=== PATIENT | female | born 1975 | race Caucasian/White ===

== ENCOUNTER 2022-05-27 09:37 | Emergency (ER) | payer BC, SELFPAY ==
[2022-05-27] VITALS (14 sets, daily range): BP systolic 109–129; BP diastolic 70–87; PULSE 84–114; RESP 16; TEMP 37.1–37.2; O2SAT 96–98; BMI 42.0
--- NOTE | 2022-05-27 10:19 | ED.SOB ---
HPI - SOB/Dyspnea General Time Seen by Provider: 10:19 Date Seen: 05/27/22 Chief Complaint: Shortness of Breath/Dyspnea Stated Complaint: Covid+, shortness of breath Time Seen by Provider: 05/27/22 10:18 Source: patient and RN notes reviewed Mode of arrival: ambulatory Limitations: no limitations History of Present Illness HPI Narrative: Patient is a very pleasant 46-year-old female with a history of reactive airway who comes to the emergency room for evaluation regarding COVID. Patient notes that approximately 36 hours ago she noticed a scratchy throat and yesterday had some itchiness in her chest and it continued sore throat. She notes that she took a COVID test and that was negative and she use some of her albuterol which seemed to help her breathe. However, overnight she states she could not sleep and she was occasionally short of breath. She notes that when she walks she also gets out of breath. This morning she took 2 go COVID tests and they were both positive. She is worried because she states that she is overweight and does have a past history of smoking although she quit in 2009. She notes that she does not have any chest pain and she does not have pain when she walks. She is normally a healthy person but has just discontinued Medrol for back pain. She had an annular tear and had been essentially pain-free but now she does have some spasm in her back that has return. No loss of bowel or bladder control and she is able to ambulate. Patient states that she is very worried about COVID as she has not had in the past. She is not only vaccinated but has had all the boosters. She denies vomiting or diarrhea. Patient denies a history of DVT, calf pain or swelling. Related Data Previous Rx's Medication Instructions Recorded nirmatrelvir 300 mg (150 mg See Rx Instructions PO .COMPLEX 05/27/22 x2)-ritonavir 100 mg tablet,dose #30 ea pack(EUA) (Paxlovid) Allergies Allergy/AdvReac Type Severity Reaction Status Date / Time azithromycin [From Zithromax] Allergy Verified 05/27/22 09:49 cefaclor [From Ceclor] Allergy Verified 05/27/22 09:49 Penicillins Allergy Verified 05/27/22 09:48 Review of Systems Status of ROS: Reports: 10 or more systems reviewed and unremarkable except as noted in History and below Const: Reports: fatigue; Denies: fever Eyes: Denies: blurry vision ENMT: Reports: throat pain; Denies: neck pain, difficulty swallowing or hoarseness Cardio: Reports: shortness of breath with exertion; Denies: chest pain or swelling of feet/ankles Resp: Reports: shortness of breath, cough and wheezing GI: Denies: abdominal pain, nausea, vomiting, diarrhea or difficulty swallowing : Denies: painful urination or urinary frequency Musculo: Denies: neck pain Integ/Breast: Denies: rash or itching Endo: Reports: fatigue Allergy/Immuno: Reports: wheezing PFSH PFSH Social History Smoking Status: Former smoker Do you use any of these nicotine containing products: None Second hand tobacco smoke exposure: No How often do you have a drink containing alcohol: monthly or less How many standard drinks containing alcohol do you have on a typical day: 1 or 2 How often do you have six or more drinks on one occasion: Never AUDIT-C Alcohol total score: 1 Non-prescribed substance use: denies use service: No Exam Narrative: Exam Narrative: Patient is a very pleasant female in no acute distress. EOM is full pupils equal round reactive. Oral cavity with moist mucous membranes. I do not note any exudate in posterior oropharynx. Perhaps there is some mild increased erythema noted. Neck is supple with no lymphadenopathy. Heart with regular rate and rhythm. Lungs are clear in all lung mandujano. Perhaps slightly decreased sounds in the bases left greater than right. No CVA tenderness with percussion. Abdomen soft nontender. Lower extremities without edema calf tenderness and negative Homans sign. Const: Vital Signs, click to edit/add: Vital Signs - 24 hr 05/27/22 09:49 05/27/22 09:46 05/27/22 09:49 Temperature 98.7 F Pulse Rate 108 H 114 H Pulse Rate [Pulse Oximeter] 102 H Respiratory Rate Blood Pressure 129/87 Blood Pressure [Ri ght Upper Arm] 129/87 Pulse Oximetry 97 96 97 Oxygen Delivery Me thod Room Air 05/27/22 10:02 05/27/22 10:15 05/27/22 10:22 Temperature Pulse Rate 90 99 95 Pulse Rate [Pulse Oximeter] Respiratory Rate Blood Pressure 118/78 Blood Pressure [Ri ght Upper Arm] Pulse Oximetry 98 98 97 Oxygen Delivery Me thod 05/27/22 10:23 05/27/22 10:30 05/27/22 10:32 Temperature Pulse Rate 92 88 96 Pulse Rate [Pulse Oximeter] Respiratory Rate Blood Pressure 122/71 Blood Pressure [Ri ght Upper Arm] Pulse Oximetry 98 98 98 Oxygen Delivery Me thod 05/27/22 10:45 05/27/22 11:00 05/27/22 11:03 Temperature Pulse Rate 91 84 88 Pulse Rate [Pulse Oximeter] Respiratory Rate Blood Pressure 115/77 Blood Pressure [Ri ght Upper Arm] Pulse Oximetry 97 97 97 Oxygen Delivery Me thod 05/27/22 11:15 05/27/22 11:30 05/27/22 11:32 Temperature 98.9 F Pulse Rate 90 91 88 Pulse Rate [Pulse Oximeter] Respiratory Rate 16 Blood Pressure 109/70 Blood Pressure [Ri ght Upper Arm] Pulse Oximetry 98 97 98 Oxygen Delivery Me thod Documenting provider has reviewed patient's vital signs: yes Course Vital Signs Vital signs: Initial Vital Signs Pulse Rate 108 H 05/27/22 09:46 Pulse Oximetry 96 05/27/22 09:46 Vital Signs Pulse Rate 108 H 05/27/22 09:46 Pulse Oximetry 96 05/27/22 09:46 Temperature 98.9 F 05/27/22 11:32 Pulse Rate 88 05/27/22 11:32 Respiratory Rate 16 05/27/22 11:32 Blood Pressure 109/70 05/27/22 11:32 Pulse Oximetry 98 05/27/22 11:32 Oxygen Delivery Method 05/27/22 09:49 MDM - SOB/Dyspnea MDM Narrative Medical decision making narrative: 1. COVID-patient has risk factors for disease progression including obesity as well as reactive airway. She is vaccinated. Normal creatinine. Will start patient on COVID medication Paxlovid. Did speak of risks including allergic reaction, kidney impact, poor taste in mouth as well as benefits. I do think benefits outweigh the risks in this particular situation. We also spoke about breathing exercises including 2 deep breaths, 2 coughs and 2 deep breaths at the top of every hour while awake. Finally we also recommend sleeping on stomach or side. 2. Disposition-home. Rest at this time. Check with human resources department at work to find out when she is able to return. Of course, for worsening symptoms would have them return to the emergency room. At this time no evidence of underlying heart issues with normal EKG, troponin was negative, vital signs are reassuring. Recommend rest, push fluids, ibuprofen or Tylenol as needed for pain. Medical Records Attestation: I reviewed the patient's medical records. Lab Data Attestation: I reviewed the patient's lab results. Labs: Lab Results 05/27/22 Range/Units 10:00 Creatinine 0.6 (0.5-1.5) mg/dL Estimated Creat Clear 110.84 Estimated GFR 113 ml/min Imaging Data Chest x-ray: Attestation: I have reviewed the pertinent imaging results. My impression: No evidence of infiltrates or widened mediastinum. Radiologist's impression: EART AND MEDIASTINUM: The heart size is normal. The mediastinal contour appears normal for patient age. LUNGS AND PLEURAL SPACES: The lungs appear normal.The pleural spaces are unremarkable. OSSEOUS STRUCTURES: Age-appropriate appearance. No acute focal finding. IMPRESSION: Normal single-view portable chest radiograph. ECG Data Attestation: I personally reviewed and interpreted this ECG as follows: ECG interpretation date: 05/27/22 Interpretation: EKG by my read shows sinus rhythm at a rate of 91. I do not note any acute ST or T-wave changes. QT normal at 435 Discharge Plan Discharge Clinical Impression: COVID Patient Disposition: Home, Self-Care Condition: Unchanged Additional Instructions: Start Paxlovid. Alternate ibuprofen and Tylenol as needed for discomfort Breathing exercises included. Try to sleep on your stomach or on your side. Recommend at the top of every hour while you are awake 2 deep breaths, 2 hard coughs, 2 deep breaths to keep all the airways open. Move your legs often to prevent blood clots. Seek medical attention for worsening symptoms. Prescriptions: New Paxlovid (EUA) 300 mg (150 mg x 2)-100 mg tablets,dose pack See Rx Instructions .ROUTE .COMPLEX Qty: 30 0RF Rx Instructions: take TWO 150 mg tablets of nirmatrelvir with ONE 100 mg tablet of ritonavir twice daily for 5 days Follow Up/Referrals: Provider,Not a Local [Primary Care Provider] - Stand Alone Forms: [facility] Inst[facility]
--- NOTE | 2022-05-27 10:20 | CRLHL7_ITS ---
For Patients: As a result of the Cures Act, medical imaging exams and procedure reports are released immediately into your electronic medical record. You may view this report before your referring provider. If you have questions, please contact your health care provider. INDICATION: COVID with dyspnea COMPARISON: None TECHNIQUE: Portable single view examination FINDINGS: TUBES AND LINES: None. HEART AND MEDIASTINUM: The heart size is normal. The mediastinal contour appears normal for patient age. LUNGS AND PLEURAL SPACES: The lungs appear normal.The pleural spaces are unremarkable. OSSEOUS STRUCTURES: Age-appropriate appearance. No acute focal finding. IMPRESSION: Normal single-view portable chest radiograph. Dictated by Roderick Freeman MD @ 05/27/2022 10:37:53 AM (Electronically Signed)
[2022-05-27 10:32] LABS: Creatinine* 0.6 mg/dL (0.5-1.5); Est. Creatinine Clearance* 110.84; Estimated Glomerular Filt Rate 113 ml/min
== END 2022-05-27 11:40 | disposition home or self-care (01) ==
PROVIDERS: Emergency Provider Family Medicine
DX: U07.1 COVID-19 (principal); E66.9 Obesity, unspecified; J45.909 Unspecified asthma, uncomplicated
CPT/HCPCS: 36415; 71045; 82565; 99283; 99284

== ENCOUNTER 2022-11-10 21:42 | Emergency (ER) | payer BC, SELFPAY ==
[2022-11-10] VITALS (7 sets, daily range): BP systolic 135–165; BP diastolic 78–95; PULSE 54–89; RESP 16–18; TEMP 36.8–37.1; O2SAT 95–99; BMI 42.0
--- NOTE | 2022-11-10 22:02 | CRLHL7_ITS ---
For Patients: As a result of the Century Cures Act, medical imaging exams and procedure reports are released immediately into your electronic medical record. You may view this report before your referring provider. If you have questions, please contact your health care provider. INDICATION: Chest pain, shortness of breath TECHNIQUE: Chest radiograph 3 views COMPARISON: 05/27/2022, 03/11/2016 FINDINGS: Mediastinum: The mediastinum is normal in appearance but partly obscured by a Zio monitor. The heart silhouette is normal in size and morphology. Lung: Both lungs are unremarkable in appearance. No sign of pleural effusion seen. No pneumothorax is identified. Bone and Soft tissue: Unremarkable for age. IMPRESSION: 1. No acute cardiopulmonary disease is seen. Dictated by: Ovidio Spain MD @ 11/10/2022 22:43:13 (Electronically Signed)
--- NOTE | 2022-11-10 22:03 | ED_ITS ---
HPI - General Adult General Time Seen by Provider: 22:03 Date Seen: 11/10/22 Chief complaint: Abdominal Pain Stated complaint: upper gastric pain Time Seen by Provider: 11/10/22 21:51 Source: patient Mode of arrival: ambulatory Limitations: no limitations History of Present Illness HPI narrative: Patient is a 47-year-old female with no pertinent medical problems presenting to emergency department for chest pain and shortness of breath. She says yesterday she started having chest pressure and felt like someone was sitting on her chest. She went to the clinic in was evaluated and discharged home with a Holter monitor. She says today the chest pressure is gone away but now she has more of a sharp pain in her midsternal region that radiates to her right shoul good right ribs. Denies ever having symptoms like this before. Does states she has been having a dry cough that started shortly after the chest pressure yesterday. Denies fevers, chills, headache, vomiting, diarrhea, constipation, nausea, vomiting, weakness, numbness. Related Data Home Medications Medication Instructions Recorded Confirmed clobetasol 0.05 % scalp solution 1 applic topical DIRECTED PRN 11/10/22 11/10/22 itch ketoconazole 2 % shampoo 1 applic topical DIRECTED PRN 11/10/22 11/10/22 Allergies Allergy/AdvReac Type Severity Reaction Status Date / Time azithromycin [From Zithromax] Allergy Mild Rash Verified 11/10/22 21:54 cefaclor [From Ceclor] Allergy Mild Rash Verified 11/10/22 21:54 Penicillins Allergy Mild Rash Verified 11/10/22 21:54 Review of Systems Status of ROS: Reports: 10 or more systems reviewed and unremarkable except as noted in History and below [facility] Medical History (Updated 11/11/22 @ 00:07 by Petros Thomas DO) Lymphedema ?I89.0 - Lymphedema, not elsewhere classified (ICD-10) Seborrheic dermatitis ?L21.9 - Seborrheic dermatitis, unspecified (ICD-10) Anxiety ?F41.9 - Anxiety disorder, unspecified (ICD-10) Vitamin D imbalance Endometriosis of uterus ?N80.00 - Endometriosis of the uterus, unspecified (ICD-10) Toe fracture ?S92.919A - Unspecified fracture of unspecified toe(s), initial encounter for closed fracture (ICD-10) Surgical History (Updated 11/10/22 @ 22:24 by Toño Cook RN) History of section ?Z98.891 - History of uterine scar from previous surgery (ICD-10) Social History Smoking Status: Former smoker Do you use any of these nicotine containing products: None Second hand tobacco smoke exposure: No How often do you have a drink containing alcohol: monthly or less How many standard drinks containing alcohol do you have on a typical day: 1 or 2 How often do you have six or more drinks on one occasion: Never AUDIT-C Alcohol total score: 1 Non-prescribed substance use: denies use service: No Exam Narrative: Exam Narrative: Const: Well-nourished, Well-developed, in mild distress Eyes: PERRL, no conjunctival injection, and symmetrical lids ENMT: Atraumatic external nose and ears. Moist mucous membranes. Neck: Symmetric, trachea midline, No thyromegaly. CVS: RRR, No murmurs or gallops. Peripheral pulses 2+ and equal in all extremities RESP: Unlabored respiratory effort. Clear to auscultation bilaterally. GI: Nontender/Nondistended, No rebound or guarding. MSK:Extremities w/o deformity, Normal Active ROM Skin: Warm, Dry. No rashes or lesions. Neuro: Normal Muscle tone, No focal neurological deficits. Psych: Awake, Alert, & Oriented x3. Appropriate mood and affect. Const: Vital Signs, click to edit/add: Vital Signs - 24 hr 11/10/22 21:51 11/10/22 22:25 11/10/22 22:32 Temperature 98.8 F 98.2 F Pulse Rate 56 L 55 L Pulse Rate [Right Pulse Oximeter] 89 Respiratory Rate 18 16 16 Blood Pressure 135/84 141/83 H Blood Pressure [Ri ght Upper Arm] 165/95 H Pulse Oximetry 99 97 97 Oxygen Delivery Me thod Room Air 11/10/22 22:33 11/10/22 22:39 11/10/22 23:00 Temperature 98.2 F Pulse Rate 54 L 58 L Pulse Rate [Right Pulse Oximeter] Respiratory Rate Blood Pressure Blood Pressure [Ri ght Upper Arm] Pulse Oximetry 96 95 Oxygen Delivery Me thod 11/10/22 23:02 Temperature Pulse Rate 55 L Pulse Rate [Right Pulse Oximeter] Respiratory Rate Blood Pressure 139/78 Blood Pressure [Ri ght Upper Arm] Pulse Oximetry 97 Oxygen Delivery Me thod Course Vital Signs Vital signs: Initial Vital Signs Temperature 98.8 F 11/10/22 21:51 Temperature Source Temporal Artery Scan 11/10/22 21:51 Pulse Rate 89 11/10/22 21:51 Respiratory Rate 18 11/10/22 21:51 Blood Pressure 165/95 H 11/10/22 21:51 Blood Pressure Mean 118 H 11/10/22 21:51 Blood Pressure Position Sitting 11/10/22 21:51 Pulse Oximetry 99 11/10/22 21:51 Oxygen Delivery Method Room Air 11/10/22 21:51 Vital Signs Temperature 98.8 F 11/10/22 21:51 Pulse Rate 89 11/10/22 21:51 Respiratory Rate 18 11/10/22 21:51 Blood Pressure 165/95 H 11/10/22 21:51 Pulse Oximetry 99 11/10/22 21:51 Oxygen Delivery Method Room Air 11/10/22 21:51 Temperature 98.2 F 11/10/22 22:39 Pulse Rate 55 L 11/10/22 23:02 Respiratory Rate 16 11/10/22 22:32 Blood Pressure 139/78 11/10/22 23:02 Pulse Oximetry 97 11/10/22 23:02 Oxygen Delivery Method Room Air 11/10/22 21:51 Medical Decision Making MDM Narrative Medical decision making narrative: Patient for 7 year female presented emergency department for her chest pain that is in her midsternal region that goes to her back. Presently stable unlikely to be for dissection. She says the chest pressure has improved. She was concern for pancreatitis. He did recently have a steroid injection 2 days ago. CBC, CMP, lipase, chest x-ray, COVID/flu/RSV were all ordered. Troponin was also ordered. Toradol given for pain. Patient did improve somewhat with the Toradol. CMP shows no concerning abnormalities. LFTs are within normal limits. Lipase is within normal limits. Unlikely to be pancreatitis or gallbladder related. Troponin is less than 0.01 this is likely cardiac in nature considering along symptoms have been going on with a normal troponin. EKG also shows no concerning abnormalities. Chest x- ray was normal as read by myself and the radiologist. She does have an elevated white count which with her symptoms and make the consider pneumonia but she says the cough is very mild she is not having any fevers. The white count was elevated yesterday too but this is likely from her recent steroid injection. So at this time or not treated with antibiotics. I am not sure what is causing his symptoms but does not appear to be emergent at this time and she will be discharged home. She is agreeable to this plan. Lab Data Labs: Lab Results 11/10/22 11/10/22 11/10/22 Range/Units 22:08 22:40 23:36 WBC 15.33 H (4.50-11.00) K/uL RBC 4.90 (4.00-5.20) m/uL Hgb 13.8 (12.0-16.0) gm/dL Hct 42.3 (33.0-51.0) % MCV 86 (80-100) fL MCH 28 (26-34) pg MCHC 33 (32-36) gm/dL RDW Coeff of Jorge 13.5 (11.5-15.5) % Plt Count 513 H (140-440) K/uL Neut % (Auto) 69.7 (42.0-72.0) % Lymph % (Auto) 19.5 L (20-44) % Cass % (Auto) 8.7 (0.0-11.0) % Eos % (Auto) 0.2 (0.0-7.0) % Baso % (Auto) 0.1 (0.0-3.0) % Neut # (Auto) 10.70 H (1.7-7.0) K/uL Lymph # (Auto) 3.00 H (0.90-2.90) K/uL Cass # (Auto) 1.30 H (0.00-0.90) K/UL Eos # (Auto) 0.00 (0.00-0.50) K/uL Baso # (Auto) 0.00 (0.00-0.30) K/uL Abs Immat Gran (auto) 0.30 (0.00-0.30) K/uL Imm/Tot Granulo (auto) 1.8 % D-Dimer Quant (PE/DVT) 0.34 (0.00-0.50) ug/ml Sodium 138 (135-149) mmol/L Potassium 3.7 (3.6-5.1) mmol/L Chloride 103 (96-114) mmol/L Carbon Dioxide 28 (20-32) mmol/L BUN 18 (5-24) mg/dL Creatinine 0.8 (0.5-1.5) mg/dL Estimated Creat Clear 82.26 Estimated GFR 92 ml/min Glucose 119 H (60-115) mg/dL Calcium 9.2 (8.4-10.6) mg/dL Total Bilirubin 0.3 (0.1-1.5) mg/dL AST 21 (12-35) U/L ALT 26 (4-35) U/L Alkaline Phosphatase 43 (40-150) U/L Troponin I < 0.01 L (0.01-0.04) ng/mL Total Protein 7.2 (6.0-8.3) g/dL Albumin 4.3 (3.3-5.0) g/dL Lipase 230 (23-300) U/L SARS-CoV-2 (PCR) Negative SARS-CoV-2 (Negative) Influenza Type A (PCR) Negative PCR FLU A (Negative) Influenza Type B (PCR) Negative PCR FLU B (Negative) RSV (PCR) Negative PCR RSV (Negative) Lab Acknowledgement Test Added Imaging Data Chest x-ray: Radiologist's impression: INDICATION: Chest pain, shortness of breath TECHNIQUE: Chest radiograph 3 views COMPARISON: 05/27/2022, 03/11/2016 FINDINGS: Mediastinum: The mediastinum is normal in appearance but partly obscured by a Zio monitor. The heart silhouette is normal in size and morphology. Lung: Both lungs are unremarkable in appearance. No sign of pleural effusion seen. No pneumothorax is identified. Bone and Soft tissue: Unremarkable for age. IMPRESSION: 1. No acute cardiopulmonary disease is seen. Dictated by: Ovidio Spain MD @ 11/10/2022 22:43:13 ECG Data Attestation: I personally reviewed and interpreted this ECG as follows: (Normal sinus rhythm with a sinus arrhythmia and occasional premature ventricular complexes, normal intervals, normal axis, no ST T wave abnormalities. Rate of 63 beats per minute. Appears similar to previous EKGs.) Prior ECG tracings: available for review (02/23/23) Discharge Plan Discharge Clinical Impression: Atypical chest pain Patient Disposition: Home, Self-Care Condition: Stable Instructions: Noncardiac Chest Pain (ED) Additional Instructions: Your lab work does not show signs of pancreatitis or blood clots. You have an elevated white blood cell count but this could be from a recent steroid injection. If symptoms not improving he can return to the emergency department or follow-up with the primary care provider Activity Level: Wear Brace Prescriptions: No Action clobetasol 0.05 % solution 1 applic topical DIRECTED PRN (Reason: itch) ketoconazole 2 % shampoo 1 applic topical DIRECTED PRN Follow Up/Referrals: Provider,Not a Local [Primary Care Provider] - Stand Alone Forms: [employer] Info Instructions
[2022-11-10] MEDS: KETOROLAC 15 MG/ML inj IVP (22:09)
[2022-11-10 22:22] LABS: Basophils Percent Auto 0.1 % (0.0-3.0); Eosinophils Percent Auto 0.2 % (0.0-7.0); Hematocrit 42.3 % (33.0-51.0); Hemoglobin* 13.8 gm/dL (12.0-16.0); Immature Granulocytes Pct Auto 1.8 %; Lymphocytes Percent Auto 19.5 % (20-44); Mean Corpuscular HGB Conc 33 gm/dL (32-36); Mean Corpuscular Hemoglobin 28 pg (26-34); Mean Corpuscular Volume 86 fL (80-100); Monocytes Percent Auto 8.7 % (0.0-11.0); Neutrophils Percent Auto 69.7 % (42.0-72.0); Platelet Count* 513 K/uL (140-440); RDW Coefficient of Variation % 13.5 % (11.5-15.5); White Blood Count* 15.33 K/uL (4.50-11.00)
[2022-11-10 22:23] LABS: Slide Review Reflex No
[2022-11-10 22:27] LABS: Albumin* 4.3 g/dL (3.3-5.0); Chloride* 103 mmol/L (96-114); Potassium* 3.7 mmol/L (3.6-5.1); Sodium* 138 mmol/L (135-149)
[2022-11-10 22:29] LABS: Creatinine* 0.8 mg/dL (0.5-1.5); Est. Creatinine Clearance* 82.26; Estimated Glomerular Filt Rate 92 ml/min
[2022-11-10 22:30] LABS: Alanine Aminotransferase* 26 U/L (4-35); Alkaline Phosphatase* 43 U/L (40-150); Aspartate Amino Transferase* 21 U/L (12-35); Bilirubin Total* 0.3 mg/dL (0.1-1.5); Blood Urea Nitrogen* 18 mg/dL (5-24); Calcium* 9.2 mg/dL (8.4-10.6); Carbon Dioxide* 28 mmol/L (20-32); Glucose* 119 mg/dL (60-115); Total Protein* 7.2 g/dL (6.0-8.3)
[2022-11-10 22:35] LABS: D Dimer Quantitative* 0.34 ug/ml (0.00-0.50)
[2022-11-10 22:42] LABS: Troponin I* < 0.01 ng/mL (0.01-0.04)
[2022-11-10 23:27] LABS: PCR FLU A Negative PCR FLU A (Negative); PCR FLU B Negative PCR FLU B (Negative); PCR RSV Negative PCR RSV (Negative)
[2022-11-10 23:30] LABS: SARS PCR* Negative SARS-CoV-2 (Negative)
[2022-11-10 23:56] LABS: Lipase* 230 U/L (23-300)
== END 2022-11-11 00:23 | disposition home or self-care (01) ==
PROVIDERS: Emergency Provider Student in an Organized Health Care Education/Training Program
DX: R07.89 Other chest pain (principal)
CPT/HCPCS: 36415; 71046; 80053; 83690; 84484; 85025; 85379; 87631; 93005; 96374; 99283; 99284; 99285; J1885

== ENCOUNTER 2023-01-06 11:29 | Outpatient (CLI) | payer BC, SELFPAY | END 2023-01-06 11:30 | disposition home or self-care (01) | LOC: AMB 01-09 10:09 | PROVIDERS: Visit Provider Emergency Medicine | DX: R42 Dizziness and giddiness (principal) | CPT/HCPCS: A0425; A0427 ==

== ENCOUNTER 2023-01-06 11:54 | Emergency (ER) | payer BC, SELFPAY ==
[2023-01-06] VITALS (12 sets, daily range): BP systolic 141–164; BP diastolic 87–98; PULSE 53–81; RESP 16–18; TEMP 36.2–36.8; O2SAT 95–99; BMI 42.0
--- NOTE | 2023-01-06 12:21 | ED_ITS ---
HPI - General Adult General Date Seen: 01/06/23 Chief complaint: Dizziness/Vertigo Stated complaint: vertigo Time Seen by Provider: 01/06/23 11:55 Source: patient and EMS Mode of arrival: EMS Limitations: no limitations History of Present Illness HPI narrative: Patient is a 47-year-old woman who presents via EMS for near syncope. She says that she was at home, she was working on her computer and had gotten up to see if there was anything to eat in the kitchen. She started to feel nauseated and then she felt a warm rash throughout her body and felt like she was going to pass out. She says she lowered herself down to her hands and knees and felt better as long she kept her head down. If she tried to stand up she would feel lightheaded again. 911 was called, they report normal blood pressure and pulse, blood sugar of 86. She does have a history of multiple fainting episodes in the past related to blood draws, shots etcetera. She has also had she says several ER visits related to chest pain/palpitations, she ultimately had a ZIO patch in an echo recently which were reportedly normal. She has an appointment with Cardiology to review these results next week. She denies any recent illness, fevers, vomiting or diarrhea, black or bloody stools. She has had headache since last week. She got her COVID booster and then developed headache, she does have history of occasional migraines a couple of times a year and this felt like a typical migraine. She did check a COVID test a couple of times which was negative. Headache feels worse since this episode at home. It is holocranial, throbbing. Related Data Home Medications Medication Instructions Recorded Confirmed clobetasol 0.05 % scalp solution 1 applic topical DIRECTED PRN 11/10/22 11/10/22 itch ketoconazole 2 % shampoo 1 applic topical DIRECTED PRN 11/10/22 11/10/22 Allergies Allergy/AdvReac Type Severity Reaction Status Date / Time azithromycin [From Zithromax] Allergy Mild Rash Verified 11/10/22 21:54 cefaclor [From Ceclor] Allergy Mild Rash Verified 11/10/22 21:54 Penicillins Allergy Mild Rash Verified 11/10/22 21:54 Review of Systems Status of ROS: Reports: 10 or more systems reviewed and unremarkable except as noted in History and below PFSH PFSH Medical History Lymphedema ?I89.0 - Lymphedema, not elsewhere classified (ICD-10) Seborrheic dermatitis ?L21.9 - Seborrheic dermatitis, unspecified (ICD-10) Anxiety ?F41.9 - Anxiety disorder, unspecified (ICD-10) Vitamin D imbalance Endometriosis of uterus ?N80.00 - Endometriosis of the uterus, unspecified (ICD-10) Toe fracture ?S92.919A - Unspecified fracture of unspecified toe(s), initial encounter for closed fracture (ICD-10) Surgical History History of section ?Z98.891 - History of uterine scar from previous surgery (ICD-10) Social History Smoking Status: Former smoker Do you use any of these nicotine containing products: None Second hand tobacco smoke exposure: No How often do you have a drink containing alcohol: monthly or less How many standard drinks containing alcohol do you have on a typical day: 1 or 2 How often do you have six or more drinks on one occasion: Never AUDIT-C Alcohol total score: 1 Non-prescribed substance use: denies use service: No Exam Narrative: Exam Narrative: Vital signs as noted above. In general, an alert, well-appearing patient. Head: Normocephalic, atraumatic. Eyes: Pupils are equal reactive. Extraocular movements are full. Conjunctivae are normal. Optic discs are sharp bilaterally. ENT: Mucous membranes are moist. Neck: Supple without lymphadenopathy. No meningeal signs. Heart: Regular rate and rhythm. No murmur or rub. Lungs: Clear bilaterally. No increased work of breathing, crackles or wheezes. Abdomen: Soft and nontender. No organomegaly. Extremities: Well perfused. No edema. No calf tenderness. Pulses intact. Neurologic: Patient is alert and oriented to person and place. Speech is fluent. Face is symmetric. Moves all extremities equally. Affect: Normal. Skin: Warm and dry. Well perfused. Const: Vital Signs, click to edit/add: Vital Signs - 24 hr 01/06/23 11:57 01/06/23 12:17 01/06/23 12:25 Temperature 97.2 F L Pulse Rate Pulse Rate [Pulse Oximeter] 61 67 Respiratory Rate 18 16 Blood Pressure Blood Pressure [Le ft Forearm] 151/91 H 164/98 H Pulse Oximetry 98 97 98 Oxygen Delivery Me thod Room Air Room Air 01/06/23 12:30 01/06/23 12:54 01/06/23 13:00 Temperature Pulse Rate 56 L 53 L Pulse Rate [Pulse Oximeter] 57 L Respiratory Rate 16 Blood Pressure Blood Pressure [Le ft Forearm] 156/96 H Pulse Oximetry 99 98 99 Oxygen Delivery Me thod Room Air 01/06/23 13:02 01/06/23 13:15 01/06/23 13:30 Temperature Pulse Rate 54 L 58 L 81 Pulse Rate [Pulse Oximeter] Respiratory Rate Blood Pressure 146/87 H Blood Pressure [Le ft Forearm] Pulse Oximetry 98 97 95 Oxygen Delivery Me thod 01/06/23 13:32 01/06/23 13:45 01/06/23 14:03 Temperature 98.2 F Pulse Rate 54 L 59 L Pulse Rate [Pulse Oximeter] Respiratory Rate 16 Blood Pressure 141/87 H Blood Pressure [Le ft Forearm] Pulse Oximetry 96 99 Oxygen Delivery Me thod Documenting provider has reviewed patient's vital signs: yes Course Course ED Course: Patient had an IV established here. She was given a L normal saline, Toradol, Benadryl and Zofran with resolution of her headache. She had an EKG which showed a sinus bradycardia ventricular rate of 51 beats per minute. No acute ST segment changes, corrected QT of 401 milliseconds. She had a little bit of variability of her heart rate generally bouncing between the low 50s and upper 60s. Blood pressures were always stable. Labs notable for normal white blood cell count at 10.8, hemoglobin of 14. I did a D-dimer, my suspicion for any kind of thrombotic event was quite low and D- dimer was negative at 0.29. I do not think she needs imaging for her headache. I do not think this represents intracranial hemorrhage given the timing and desc ription of the headache. Her metabolic panel was normal, blood sugar was 93. She had concerns that her symptoms might represent diabetes or high blood pressure, and we discussed that those are probably not causal for her. COVID was negative. Point of care troponin was 0. Overall, her presentation is most suggestive of a vagal event and based on her description of multiple episodes of fainting in the past I suspect she has at baseline higher vagal tone. She has an appointment with Cardiology upcoming to review her recent ZIO patch and echo, would have her follow up with her primary care doctor she is having persistent problems with lightheadedness or headaches. Vital Signs Vital signs: Initial Vital Signs Temperature 97.2 F L 01/06/23 11:57 Temperature Source Temporal Artery Scan 01/06/23 11:57 Pulse Rate 61 01/06/23 11:57 Pulse Rhythm Regular 01/06/23 11:57 Respiratory Rate 18 01/06/23 11:57 Blood Pressure 151/91 H 01/06/23 11:57 Blood Pressure Mean 111 H 01/06/23 11:57 Blood Pressure Position Supine 01/06/23 11:57 Pulse Oximetry 98 01/06/23 11:57 Oxygen Delivery Method Room Air 01/06/23 11:57 Vital Signs Temperature 97.2 F L 01/06/23 11:57 Pulse Rate 61 01/06/23 11:57 Respiratory Rate 18 01/06/23 11:57 Blood Pressure 151/91 H 01/06/23 11:57 Pulse Oximetry 98 01/06/23 11:57 Oxygen Delivery Method Room Air 01/06/23 11:57 Temperature 98.2 F 01/06/23 14:03 Pulse Rate 59 L 01/06/23 13:45 Respiratory Rate 16 01/06/23 13:45 Blood Pressure 141/87 H 01/06/23 13:32 Pulse Oximetry 99 01/06/23 13:45 Oxygen Delivery Method Room Air 01/06/23 12:30 Medical Decision Making Lab Data Labs: Lab Results 01/06/23 01/06/23 Range/Units 12:06 12:33 WBC 10.85 (4.50-11.00) K/uL RBC 4.91 (4.00-5.20) m/uL Hgb 14.0 (12.0-16.0) gm/dL Hct 42.7 (33.0-51.0) % MCV 87 (80-100) fL MCH 29 (26-34) pg MCHC 33 (32-36) gm/dL RDW Coeff of Jorge 12.9 (11.5-15.5) % Plt Count 410 (140-440) K/uL Neut % (Auto) 71.2 (42.0-72.0) % Lymph % (Auto) 19.8 L (20-44) % [place] % (Auto) 7.6 (0.0-11.0) % Eos % (Auto) 1.0 (0.0-7.0) % Baso % (Auto) 0.3 (0.0-3.0) % Neut # (Auto) 7.73 H (1.7-7.0) K/uL Lymph # (Auto) 2.10 (0.90-2.90) K/uL [place] # (Auto) 0.80 (0.00-0.90) K/UL Eos # (Auto) 0.11 (0.00-0.50) K/uL Baso # (Auto) 0.03 (0.00-0.30) K/uL Abs Immat Gran (auto) 0.01 (0.00-0.30) K/uL Imm/Tot Granulo (auto) 0.1 % D-Dimer Quant (PE/DVT) 0.29 (0.00-0.50) ug/ml Sodium 140 (135-149) mmol/L Potassium 4.7 (3.6-5.1) mmol/L Chloride 103 (96-114) mmol/L Carbon Dioxide 27 (20-32) mmol/L Anion Gap 10 (7-15) mEq/L BUN 10 (5-24) mg/dL Creatinine 0.6 (0.5-1.5) mg/dL Estimated Creat Clear 109.68 Estimated GFR 112 ml/min Glucose 93 (60-115) mg/dL Calcium 9.5 (8.4-10.6) mg/dL C-Reactive Protein 0.8 (0.5-1.0) mg/dL SARS-CoV-2 (PCR) Negative SARS-CoV-2 (Negative) POC Troponin I 0.00 L (0.01-0.04) ng/ml Discharge Plan Discharge Clinical Impression: Headache, Near syncope Patient Disposition: Home, Self-Care Condition: Improved Instructions: Acute Headache (DC), Near Syncope (ED) Additional Instructions: Follow-up with cardiology as planned. See your doctor for persistent problems with headache or lightheadedness. Evaluation today does not reveal any evidence of a dangerous cause for your symptoms Prescriptions: No Action clobetasol 0.05 % solution 1 applic topical DIRECTED PRN (Reason: itch) ketoconazole 2 % shampoo 1 applic topical DIRECTED PRN Follow Up/Referrals: Provider,Not a Local [Primary Care Provider] - Stand Alone Forms: [email or web address] Info Instructions
[2023-01-06] MEDS: 0.9 % SODIUM CHLORIDE 1000 ml 1,000 ML IV (12:39)
[2023-01-06] MEDS: ONDANSETRON 2 MG/ML inj 4 MG IVP (12:40)
[2023-01-06] MEDS: KETOROLAC 15 MG/ML inj IVP (12:41)
[2023-01-06] MEDS: diphenhydrAMINE 50 MG/ML inj 25 MG IVP (12:43)
[2023-01-06 12:50] LABS: Basophils Absolute Auto 0.03 K/uL (0.00-0.30); Basophils Percent Auto 0.3 % (0.0-3.0); Eosinophils Absolute Auto 0.11 K/uL (0.00-0.50); Hematocrit 42.7 % (33.0-51.0); Immature Granulocytes Abs Auto 0.01 K/uL (0.00-0.30); Immature Granulocytes Pct Auto 0.1 %; Lymphocytes Percent Auto 19.8 % (20-44); Mean Corpuscular HGB Conc 33 gm/dL (32-36); Mean Corpuscular Hemoglobin 29 pg (26-34); Mean Corpuscular Volume 87 fL (80-100); Monocytes Percent Auto 7.6 % (0.0-11.0); Neutrophils Absolute Auto 7.73 K/uL (1.7-7.0); Neutrophils Percent Auto 71.2 % (42.0-72.0); Platelet Count* 410 K/uL (140-440); RDW Coefficient of Variation % 12.9 % (11.5-15.5); Red Blood Count 4.91 m/uL (4.00-5.20); Slide Review Reflex No; White Blood Count* 10.85 K/uL (4.50-11.00)
[2023-01-06 13:05] LABS: Chloride* 103 mmol/L (96-114); Potassium* 4.7 mmol/L (3.6-5.1); Sodium* 140 mmol/L (135-149)
[2023-01-06 13:06] LABS: SARS PCR* Negative SARS-CoV-2 (Negative)
[2023-01-06 13:08] LABS: Creatinine* 0.6 mg/dL (0.5-1.5); Est. Creatinine Clearance* 109.68; Estimated Glomerular Filt Rate 112 ml/min
[2023-01-06 13:09] LABS: Anion Gap 10 mEq/L (7-15); Blood Urea Nitrogen* 10 mg/dL (5-24); Calcium* 9.5 mg/dL (8.4-10.6); Carbon Dioxide* 27 mmol/L (20-32); Glucose* 93 mg/dL (60-115)
[2023-01-06 13:11] LABS: C Reactive Protein* 0.8 mg/dL (0.5-1.0)
[2023-01-06 13:31] LABS: D Dimer Quantitative* 0.29 ug/ml (0.00-0.50)
== END 2023-01-06 14:04 | disposition home or self-care (01) ==
PROVIDERS: Emergency Provider Emergency Medicine
DX: R55 Syncope and collapse (principal); R51.9 Headache, unspecified
CPT/HCPCS: 36415; 80048; 84484; 85025; 85379; 86140; 87635; 93005; 94761; 96374; 96375; 99284; J1200; J1885; J2405; J7030

== ENCOUNTER 2024-12-19 00:20 | Emergency (ER) | payer BC, SELFPAY ==
--- NOTE | 2024-12-19 00:21 | ED.GENADULT ---
HPI - General Adult General Time Seen by Provider: 00:22 Date Seen: 12/19/24 Chief complaint: Hypertension Stated complaint: chest pain Time Seen by Provider: 12/19/24 00:21 Source: patient, RN notes reviewed and old records reviewed Mode of arrival: ambulatory Limitations: no limitations History of Present Illness HPI narrative: 41-year-old female who presents today with chest pain and elevated blood pressure. Patient notes that at home she started having upper chest pain and pressure sensation her neck which is a usual symptom for her with reflux, checked her blood pressure and it was 160/100, checked a couple more times and with continued to rise so she came to the emergency department. No shortness of breath, no lower extremity swelling. No neurologic symptoms, no history of high blood pressure. Does note some urinary frequency, has lymphedema of the left leg but no change in her lower extremity swelling. Related Data Home Medications ?Medication ?Instructions ?Recorded ?Confirmed clobetasol 0.05 % scalp solution 1 applic topical DIRECTED PRN 11/10/22 11/10/22 itch ketoconazole 2 % shampoo 1 applic topical DIRECTED PRN 11/10/22 11/10/22 levothyroxine 100 mcg tablet 100 mcg PO DAILY 12/19/24 12/19/24 Allergies Allergy/AdvReac Type Severity Reaction Status Date / Time azithromycin (From Zithromax) Allergy Mild Rash Verified 11/10/22 21:54 cefaclor (From Ceclor) Allergy Mild Rash Verified 11/10/22 21:54 Penicillins Allergy Mild Rash Verified 11/10/22 21:54 [facility] Medical History Lymphedema ?I89.0 - Lymphedema, not elsewhere classified (ICD-10) Seborrheic dermatitis ?L21.9 - Seborrheic dermatitis, unspecified (ICD-10) Anxiety ?F41.9 - Anxiety disorder, unspecified (ICD-10) Vitamin D imbalance Endometriosis of uterus ?N80.00 - Endometriosis of the uterus, unspecified (ICD-10) Toe fracture ?S92.919A - Unspecified fracture of unspecified toe(s), initial encounter for closed fracture (ICD-10) Surgical History History of section ?Z98.891 - History of uterine scar from previous surgery (ICD-10) Social History Smoking Status: Former smoker Do you use any of these nicotine containing products: None Second hand tobacco smoke exposure: No How often do you have a drink containing alcohol: monthly or less How many standard drinks containing alcohol do you have on a typical day: 1 or 2 How often do you have six or more drinks on one occasion: Never AUDIT-C Alcohol total score: 1 Non-prescribed substance use: denies use service: No Exam Narrative: Exam Narrative: General: Well-developed and well-nourished, no acute distress Head: Atraumatic and normocephalic Eyes: Pupils are equal reactive, extraocular motions intact, conjunctiva clear ENT: External nose and ears are normal, posterior pharynx without erythema or exudate Neck: No midline cervical tenderness, full spontaneous range of motion the neck, trachea midline, no adenopathy Heart: Regular rate and rhythm no murmurs or thrills Lungs: Clear to auscultation bilaterally without wheezes or crackles Abdomen: Soft, nontender, nondistended with active bowel sounds Musculoskeletal: No tenderness, deformity, left leg edema with circumference on the left greater than the right which patient says his usual Neurologic: Awake, alert, and oriented x3, no gross focal neurologic deficits, cranial nerves intact as tested Psych: Mood and affect are appropriate Skin: No rashes Const: Vital Signs, click to edit/add: Vital Signs - 24 hr 12/19/24 00:25 12/19/24 00:51 12/19/24 01:00 Temperature 98 F Pulse Rate 62 58 L Pulse Rate [Pulse Oximeter] 82 Respiratory Rate 16 20 18 Blood Pressure 170/87 H Blood Pressure [Ri ght Upper Arm] 194/95 H Pulse Oximetry 99 97 97 Oxygen Delivery Me thod Room Air 12/19/24 01:03 12/19/24 01:03 12/19/24 01:03 Temperature Pulse Rate 65 65 65 Pulse Rate [Pulse Oximeter] Respiratory Rate 20 20 20 Blood Pressure 154/84 H 154/84 H 154/84 H Blood Pressure [Ri ght Upper Arm] Pulse Oximetry 98 98 98 Oxygen Delivery Me thod 12/19/24 01:03 12/19/24 01:30 12/19/24 01:32 Temperature Pulse Rate 65 64 58 L Pulse Rate [Pulse Oximeter] Respiratory Rate 20 16 Blood Pressure 154/84 H 135/74 Blood Pressure [Ri ght Upper Arm] Pulse Oximetry 98 95 96 Oxygen Delivery Nc thod Course Course ED Course: Reviewed prior emergency department visit from November 2022 when patient was seen and chest pain, negative cardiac evaluation at that time with reassuring EKG and troponin. Patient had a cardiac stress test February 2020 for which did not demonstrate acute EKG changes of ischemia. Patient presents today with upper chest pain and pressure in the neck which she says is usual symptom for reflux, also hypertension which concerned her. On exam here, appears comfortable, hypertensive but otherwise vital is stable. Lungs are clear, heart is regular, no abdominal tenderness, no new lower extremity swelling. We discussed evaluation and treatment of hypertension the emergency department which is generally quite limited. However with her chest pain, EKG, troponin, and basic panel are ordered. Will give Maalox and Pepcid for reflux symptoms and plan for discharge. EKG independently interpreted by me performed at 12:36 p.m. demonstrates normal sinus rhythm rate 61, no acute ischemic changes, normal intervals, normal axis, QTC 404, MN 146. No change from prior of January 2023. Reevaluation(s) Time of Reevaluation #1: 01:44 Reevaluation #1: Labs and panel interpreted by me with mildly low anion gap an elevated BUN but otherwise normal basic panel, normal magnesium, troponin 0.01. Patient recheck, chest pain is resolved and her blood pressure is back to normal. Patient says her chest pain is similar to a prior episodes of reflux. We discussed repeat troponin in 45 minutes and patient would prefer to go home, she was mostly here because for elevated blood pressure the made her anxious, but that is resolved she is comfortable discharging. She was not going to come in for the upper chest pain which she says feels similar to her prior reflux. Vital Signs Vital signs: Initial Vital Signs Temperature 98 F 12/19/24 00:25 Temperature Source Temporal Artery Scan 12/19/24 00:25 Pulse Rate 82 12/19/24 00:25 Respiratory Rate 16 12/19/24 00:25 Blood Pressure 194/95 H 12/19/24 00:25 Blood Pressure Mean 128 H 12/19/24 00:25 Blood Pressure Position Sitting 12/19/24 00:25 Pulse Oximetry 99 12/19/24 00:25 Oxygen Delivery Method Room Air 12/19/24 00:25 Vital Signs Temperature 98 F 12/19/24 00:25 Pulse Rate 82 12/19/24 00:25 Respiratory Rate 16 12/19/24 00:25 Blood Pressure 194/95 H 12/19/24 00:25 Pulse Oximetry 99 12/19/24 00:25 Oxygen Delivery Method Room Air 12/19/24 00:25 Temperature 98 F 12/19/24 00:25 Pulse Rate 58 L 12/19/24 01:32 Respiratory Rate 16 12/19/24 01:32 Blood Pressure 135/74 12/19/24 01:32 Pulse Oximetry 96 12/19/24 01:32 Oxygen Delivery Method Room Air 12/19/24 00:25 Medications Administered Medications: Discontinued Medications Generic Name Dose Route Start Last Admin Trade Name Sivaq PRN Reason Stop Dose Admin Famotidine 20 mg 12/19/24 00:47 12/19/24 01:06 Famotidine 10 Mg/Ml Inj IVP 12/19/24 00:48 20 mg ONCE ONE Administration Lidocaine/Aluminum/Magnesium/Simeth 30 ml 12/19/24 00:47 12/19/24 01:02 Gi Cocktail (Visc Lido/Antacid) 30 Ml PO 12/19/24 00:48 30 ml ONCE ONE Administration Medical Decision Making Lab Data Labs: Lab Results 12/19/24 12/19/24 Range/Units 00:47 01:08 Sodium 137 (135-149) mmol/L Potassium 4.2 (3.6-5.1) mmol/L Chloride 104 (96-114) mmol/L Carbon Dioxide 29 (20-32) mmol/L Anion Gap 4 L (7-15) mEq/L BUN 28 H (5-24) mg/dL Creatinine 0.8 (0.5-1.5) mg/dL Estimated Creat Clear 80.51 Estimated GFR 91 ml/min Glucose 110 (60-115) mg/dL Calcium 9.3 (8.4-10.6) mg/dL Magnesium 2.1 (1.5-2.6) mg/dL POC Troponin I 0.01 (0.01-0.04) ng/ml Discharge Plan Discharge Clinical Impression: Atypical chest pain, Hypertension Patient Disposition: Home, Self-Care Condition: Stable Instructions: Chest Pain (ED), How to Take a Blood Pressure Reading (ED) Activity Level: No Restrictions Discharge Diet: Regular Prescriptions: No Action clobetasol 0.05 % solution 1 applic topical DIRECTED PRN (Reason: itch) ketoconazole 2 % shampoo 1 applic topical DIRECTED PRN levothyroxine 100 mcg tablet 100 mcg PO DAILY Follow Up/Referrals: Provider,Not a Local [Primary Care Provider, Family Practice] Stand Alone Forms: [employer] Info Instructions
[2024-12-19 00:25] VITALS: BP 194/95; PULSE 82; RESP 16; TEMP 36.6; O2SAT 99; BMI 43.1
--- OUTSIDE RECORDS SUMMARY | 2024-12-19 00:25 | XMS_ITS | Clinical Summary ---
Author Organization [facility] Address [address] [place] [address] Care Team Providers Care Export Sales Assistant Name Role Phone Frieda Ya MD Primary Care Provider [phone] Source Comments You are receiving this document as you are listed as the primary care provider,follow-up provider, or the patient has been referred to you for consultation.This is in compliance with the Medicare and[facility] EHR Incentive Program,which states Providers who transition their patient to another setting of careor provider of care or refers their patient to another provider of care shouldprovide summary care record for each transition of care or referral. [facility] Allergies Active Allergy Reactions Criticality Noted Date Comments Macrolides And Ketolides Diarrhea 06/27/2008 Penicillins Redness 06/27/2008 Medications CHANTIX STARTING MONTH DREW 0.5 MG X 11 & 1 MG X 42 OR MISCIndications :Nicotine dependence (HRC) Start 1 week before you stop smoking with 0.5mg by mouth once daily on days 1-3, then 0.5mg two time each day on days 4-7, then 1mg two time each day. Chantix should be taken for 12-24 weeks. Chantix should be taken after eating and with a full glass of water. 54 0 9 Active Additional Information Patient not taking.Reported on 10/02/2020 CHANTIX 1 MG OR TABSIndications :Nicotine dependence (HRC) Take 1mg tablet by mouth two times each day. Chantix should be taken after eating and with a full glass of water. Chantix should be taken for 12-24 weeks. NOTE: Dispense as maintenance for refills only, do not dispense with Chantix starter drew 60 2 9 Active Additional Information Patient not taking.Reported on 10/02/2020 Active Problems Problem Noted Date Diagnosed Date Chronic acquired lymphedema 07/12/2008 Immunizations Immunization Administration Dates Next Due TB Skin Test (PPD) 05/06/2008,04/22/2008 009 Tdap 04/05/2007 Family History Medical History Relation Name Comments Hypertension Father Cancer, Other Maternal Grandfather lung Cancer, Colon Maternal Grandmother Diabetes Maternal Grandmother Relation Name Status Comments Father Maternal Grandfather Maternal Grandmother Social History Tobacco Use Types Packs/Day Years Used Date Smoking Tobacco: Former Cigarettes 0.3 13 Alcohol Use Standard Drinks/Week Comments No 0 (1 standard drink = 0.6 oz pur e alcohol) Comments No Sex and Gender Information Value Date Recorded Sex Assigned at Not on file Legal Sex Female 4:32 AM CDT Gender Identity Not on file Sexual Orientation Not on file 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 Not on file Not on file Not on file Last Filed Vital Signs Vital Sign Reading Time Taken Comments Blood Pressure 96/60 08/21/2008 11:42 AM CDT Pulse 60 08/21/2008 11:42 AM CDT Temperature 36.2 C (97.1 F) 10/10/2020 11:11 AM CDT Respiratory Rate 18 08/21/2008 11:42 AM CDT Oxygen Saturation - - Inhaled Oxygen Concentration - - Weight 117.9 kg (260 lb) 10/10/2020 11:11 AM CDT Height 168.9 cm (5' 6.5) 10/10/2020 11:11 AM CD T Body Mass Index 41.34 10/10/2020 11:11 AM CDT Plan of Treatment Health Maintenance Due Date Last Done Comments Colon Cancer Screening Plan Due 1976 Hep C Screening (Preventive Services) 1976 Mammogram 1976 HIV Screening (Preventive Services) 1992 Cervical Cancer Screening Due 07/05/2008 07/04/2008 Adult Preventive Visit 07/04/2009 07/04/2008 Cholesterol 2021 07/04/2008 COVID-19 Vaccine (3 season) 2024 07/16/2020, 06/25/2020 Influenza Vaccine (#1) 2024 0, 01/18/2019, 01/02/2017, Additional history exists Zoster/Shingles Vaccine (1 of 2) 2026 DTaP/Tdap/Td Vaccine (4 - Tdap) 01/18/2029 01/18/2019, 04/28/2007, 04/05/2007, Additional history exists HepA Vaccine Aged Out No longer eligi ble based on patient's age to complete this topic Hib Vaccine Aged Out No longer eligi ble based on patient's age to complete this topic IPV (Polio) Vaccine Aged Out No longe r eligible based on patient's age to complete this topic MCV4 Vaccine Aged Out No longer eligi ble based on patient's age to complete this topic Meningococcal B Vaccine Aged Out No l onger eligible based on patient's age to complete this topic Pneumococcal Vaccine Aged Out No long er eligible based on patient's age to complete this topic Procedures Procedure Name Priority Date/Time Associated Diagnosis Comments LIPID PANEL & DIRECT LDL (IF NEEDED) Routine 07/04/2008 11:18 AM CDT Screening for Lipoid Disorders PAP TEST, ROUTINE Routine 07/04/2008 12: 00 AM CDT Screening for Malignant Neoplasm of the Cervix from Last 3 Months or Most Recently Relevant to Health Maintenance Results * (ABNORMAL) LIPID PANEL AND DIRECT LDL(IF NEEDED) (07/04/2008 11:18 AM CDT) Cholesterol 127 0 - 199 mg/dl [facility] Triglyceride 66 0 - 149 mg/dl [facility] Comment:Triglyceride should be collected after a 12 hour fast HDL 40(L) >40 mg/dl [facility] LDL, Calc. 74 0 - 129 mg/dl [facility] Hours Fasting 1 hours [facility] 07/04/2008 11:1 8 AM CDT 07/04/2008 11:23 AM CDT Jay Jay Ram PA-C LAB_1 Final Result Performing Organization Address [facility] Co de Phone Number [facility] [address] [phone] * PAP TEST, ROUTINE (07/04/2008 12:00 AM CDT) Cytology, Pap (NOTE) Wafer Abrading Machine Tender Cytology Report Patient Name: STEVEN MEJIA Taken: 07/04/2008 Received: 07/05/2008 Reported: 07/10/2008 Physician(s): JAY JAY POPE ([id number]) Source of Specimen Liquid routine Pap, cervical/endocervi abdifatah: Specimen Adequacy Satisfactory for evaluation. Endocervical component present. Final Cytologic Interpretation/Res ult NEGATIVE FOR INTRAEPITHELIAL LESION OR MALIGNANCY (NILM) Other Cytologic Findings Shift in burke suggestive of bacterial vaginosis tlp/07/10/2008 Electronically Signed Out By NIDA Verde (ASCP) NIDA Verde (ASCP) Pap Smear History Date of Last Menstrual Period: No LMP recorded [facility] 07/04/2008 07/05/2008 7:4 5 AM CDT Jay Jay Ram PA-C LAB_1 Final Result Performing Organization Address [facility] Co de Phone Number [facility] [address] [phone] from Last 3 Months or Most Recently Relevant to Health Maintenance Insurance [employer] [facility] FEDERAL [facility] FED[employer]AL Care Teams Export Sales Assistant Relationship Specialty Start Date End Date Frieda Ya MD [address] [place] [address] [facility] - General 09/25/08
--- OUTSIDE RECORDS SUMMARY | 2024-12-19 00:25 | XMS_ITS | Clinical Summary ---
Author Organization [facility] Address [address] [place] [address] Care Team Providers Care Foam Molder Name Role Phone Jose Jade Primary Care Provider [phone] Unavailable [phone] Ana Pacheco Unavailable [phone] Allergies Active Allergy Reactions Criticality Noted Date Comments Clindamycin Other - Describe In Comment Field 07/29/2014 heartburn Penicillins 10/25/2005 Tramadol 05/03/2007 lip tingling Azithromycin 10/25/2005 Senisitive to Zithromax Medications CPAPIndications: LISA (obstructive sleep apnea) CPAP machine for home use at pressure 5-20cm, nasal mask x1/3month with nasal cushion x2/mo; PHC=279a, Frequency of use=daily 1 Device 11 10/14/19 21 Active clobetasol 0.05% TOPICAL (TEMOVATE) 0.05 % external solution APPLY TO SCALP DAILY TO TWICE DAILY NEEDED FOR ITCH 02/18/20 21 Active hydrocortisone 2.5% cream 08/01/19 22 Active tiZANidine (ZANAFLEX) 2 mg tabletIndication s:Musculoskeleta l back pain,Spasm of muscle of lower back Take 1-2 Tablets (2-4 mg) by mouth every 8 hours if needed for Muscle Spasm. 90 Tablet 3 10/14/19 22 Active clindamycin (CLEOCIN-T) 1 % lotion Apply 60 mL topically to affected area(s) one time if needed (skin). 12/19/19 24 Active triamcinolone, 55 mcg each actuation, nasal (Nasacort) 55 mcg nasal sprayIndications :Dysfunction of Eustachian tube, unspecified laterality Inhale 2 Sprays in both nostrils once daily. 16.9 mL 01/13/20 24 Active ketoconazole 2% shampoo (NIZORAL) 2 % shampoo Apply topically to affected area(s). Lather on damp scalp, leave on for 5min, then rinse with water. Active ketoconazole 2 % cream Apply topically to affected area(s) once daily. Active albuterol HFA (PRO-AIR; VENTOLIN; PROVENTIL) 90 mcg/actuation inhalerIndicatio ns:Pneumonia, bacterial Inhale 1-2 Puffs by mouth every 4 hours if needed for Shortness Of Breath or Wheezing. 1 Each 05/17/19 25 Active SUMAtriptan (IMITREX) 100 mg tabletIndication s:Intractable headache, unspecified chronicity pattern, unspecified headache type Take 1 Tablet (100 mg) by mouth every 2 hours if needed for Migraine. Give at minimum 2hrs apart. Max Dose: 200mg per 24hrs. 10 Tablet 11 05/21/19 25 Active levothyroxine (SYNTHROID) 100 mcg tabletIndication s:Hypothyroidism (acquired) TAKE 1 TABLET(100 MCG) BY MOUTH BEFORE BREAKFAST 90 Tablet 10/14/19 25 Active albuterol HFA (PRO-AIR,VENTOLI N,PROVENTIL) 90 mcg/actuation inhalerIndicatio ns:Cough,Wheezin g Inhale 2 Puffs by mouth every 4 hours if needed. 1 Inhaler 1 08/19/19 18 025 Discontinu ed(Duplica te therapy (E-cancel not sent)) durable medical equipment (DME)Indications :Bilateral foot pain,Plantar fasciitis,Gastro cnemius equinus, unspecified laterality [phone] Plantar Fasciitis, Night Splint, Large 1 Each 05/30/19 25 025 Discontinu ed(*Patien t states no longer taking) Wegovy 0.5 mg/0.5 mL subcutaneous penIndications:M orbid obesity with BMI of 40.0-44.9, adult (HC) Inject 0.5 mg subcutaneous once weekly. 2 mL 11/14/19 25 025 Discontinu ed(*Availa bility/For mulary change/Cos t of medication ) Active Problems Problem Noted Date Diagnosed Date LISA (obstructive sleep apnea) 12/17/2024 Positive autoantibody screening for celiac disea se 05/25/2024 Dermatitis 05/21/2024 Colon polyp 10/04/2023 Overview (10/04/2023): Colonoscopy 10/2023 TA, repeat in 7 years Pap smear for cervical cancer screening 08/11/19 24 Overview (08/11/2023): 07/2023 NIL/ HPV negative Plan: Pap/ HPV due 07/2028 Anxiety 02/27/2016 Vitamin D imbalance 11/09/2012 Other tenosynovitis of hand and wrist 06/21/2012 Overview (03/22/2013): 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 Nonspecific abnormal results of thyroid function study 04/24/2009 Overview (04/24/2009): TSH 2.97 03/12, saw endocrinology, advised recheck in 3 months and if TSH 3 or over, would check thyroid antibodies Endometriosis of uterus 03/11/2009 Overview (03/11/2009): Seen at time of tubal ligation 04/11 Resolved Problems Problem Noted Date Diagnosed Date Resolved Date Seborrheic dermatitis, unspecified 02/21/2013 06/08/2023 Toe fracture 12/19/2008 06/08/2023 Other lymphedema 01/05/2007 06/08/2023 Encounters Date Type Department Care Team Description 12/18/2024 Transcribe Orders [facility] [place] [phone] Joan Iyer PA 12/13/2024 Telephone [facility] [address] [place] [address] Jose Jade PA Form 12/11/2024 4:00 PM CDT Office Visit [facility] [address] [place] [address] Jose Jade PA Recheck (THYROID- NOT FASTING); Concerns (REGARDING BLOOD SUGAR LEVELS); Gastroesophageal Reflux 12/11/2024 Travel 12/10/2024 Travel 12/07/2024 10:00 AM CDT Office Visit [facility] [address] [place] [address] Aiden'Carina Avilez, OD Follow Up (IOP check) 12/07/2024 Orders Only [facility] Scanner 1 scan: (1-Ord) TC ORTHO, TRIGGER POINT INJECTIONS, BILATERAL T11 AND SPINAL/PARAVETERBAL , 12/07/2024 12/07/2024 Travel 11/23/2024 10:20 AM CDT Office Visit [facility] [id number] [place] [address] Aiden'Carina Avilez, OD Eye Problem (Eye pain) 11/23/2024 Travel 11/12/2024 Refill [facility] [address] [place] [address] Ana Pacheco PA Refill Request (WeGOVY) 11/06/[address] [address] Ana Pacheco PA Prior Authorization (Wegovy 0.25 mg/0.5 mL subcutaneous pen APPROVED 10/07/24-05/05/25) 10/17/[address] [address] Ana Pacheco PA Prior Authorization (Zepbound 2.5 mg/0.5 mL pen PA NOT NEED, MED CHANGE) 10/12/2024 9:00 AM CDT Telemedicine [address] [address] Ana Pacheco PA Telehealth (no vitals taken ); Weight (mwl follow up stopped topamax) 10/12/2024 Travel 10/11/2024 Refill [facility] [address] [place] [address] Jose Jade PA Refill Request (Levothyroxine) from Last 3 Months Immunizations Immunization Administration Dates Next Due COVID-19 vaccine ([employer] (PICA) NTHazelTree 30mcg/0.3mL) PF, MDV 07/16/2020,06/25/2020 Influenza Virus, Unspecified 01/15/2016,01/09/20 11 Influenza, CCIIV3 (Age >=6 M O) (Egg Free) 03/29/2024 Influenza, IIV3 (Age >=3 years) 12/28/2012,05/20 Influenza, IIV4 01/26/2021, 0,01/18/2019,2014 Influenza,CCIIV4 PRESERV FREE 02/20/2023, 022,01/02/2017 TD, UNSPECIFIED 1975 Td (Age >=7 Years) 1975 Tdap 01/18/2019,04/28/2007 Tuberculin (PPD) 06/03/2009,12/07/2006 Varicella Vaccine 08/20/2016 Family History Medical History Relation Name Comments Kidney disease Brother 1 dysfunction al kidney Heart defect Daughter 1 Aliza R coronarty art conchita Interstitial cystitis Daughter 1 Aliza Mental illness Daughter 1 Aliza Mental illness Daughter 2 Kindra Heart Disease Father a fib Hyperlipidemia Father Hypertension Father Cancer Maternal Grandfather lung Cancer-colon Maternal Grandmother or prec ancerous polyps late 60's Diabetes Maternal Grandmother Thyroid Disease Maternal Grandmother canc er Good Health Mother Cancer-breast Other great aunt Cancer Paternal Grandfather skin Glaucoma Paternal Grandfather COPD Paternal Grandmother Heart failure Paternal Grandmother Relation Name Status Comments Brother Alive Daughter 1 Aliza Alive Daughter 2 Kindra Alive Father Alive Maternal Grandfather Maternal Grandmother Mother Alive Other great aunt Paternal Grandfather Paternal Grandmother Social History Tobacco Use Types Packs/Day Years Used Date Smoking Tobacco: Former Cigarettes 1 18.7 1 992 - 12/02/2009 Smokeless Tobacco: Never Tobacco Cessation:Counseling Given: Not Answered Alcohol Use Standard Drinks/Week Comments Yes 1 (1 standard drink = 0.6 oz pur e alcohol) occassional ( 1-2 a month) PHQ-2 Answer Date Recorded PHQ-2 TOTAL SCORE 2 06/24/2024 Social Connections Answer Date Recorded Do you often feel lonely or isolated from those around you? 0 02/22/2024 Alcohol Use Answer Date Recorded How often do you have a drink containing alcohol ? 2 12/11/2024 How many drinks containing a lcohol do you have on a typical day when you are drinking? 0 12/11/2024 How often do you have five or more drinks on one occasion? 0 12/11/2024 Financial Resource Strain Answer Date R ecorded Difficulty of Paying Living Expenses 3 01/13/2024 Difficulty of Paying Living Expenses Not on file 01/13/2024 Food Insecurity Answer Date Recorded Do you worry your food will run out before you are able to buy more? 1 02/22/2024 Transportation Needs Answer Date Record ed Does lack of transportation keep you from medica l appointments? 1 02/22/2024 Does lack of transportation keep you from work, meetings or getting things that you need? 1 02/22/2024 Housing Stability Answer Date Recorded What is your housing situation today? 1 02/22/2024 Utilities Answer Date Recorded Do you have trouble paying f or utilities (for example, heat, electricity, water, phone)? 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 Not on file Not on file Not on file Obstetrics History Para Term AB IAB SAB Ectopic Multiple Livin g Live Births 5 2 3 3 2 2 Date Outcome GA Total Labor Labor/2nd/3rd Weight Sex Type Anes PTL Eunice A1 A5 Name Clin SAB SAB SAB 1997 Para Vag-S pont Living 2002 Para C-Sec tion Living Last Filed Vital Signs Vital Sign Reading Time Taken Comments Blood Pressure 122/84 12/11/2024 4:12 PM CDT Pulse 66 12/11/2024 4:12 PM CDT Temperature 36.2 C (97.2 F) 05/17/2024 10:01 AM SALES REPRESENTATIVE Respiratory Rate 14 06/13/2024 10:2 2 AM CDT Oxygen Saturation 96% 12/11/2024 4:1 2 PM CDT Inhaled Oxygen Concentration - - Weight 123.2 kg (271 lb 11. 2 oz) 12/11/2024 4:12 PM CDT WITH SHOES Height 168.1 cm (5' 6.18) 10/12/2024 8 :00 AM CDT Body Mass Index 43.61 10/12/2024 8:00 AM CDT Plan of Treatment Upcoming Encounters Date Type Department Care Team (Late st Contact Info) Description 12/21/2024 7:30 AM CDT Ancillary Procedure [facility] Special[facility] [address] [facility] [address] [id number] Health Maintenance Due Date Last Done Comments Hepatitis B series for 19+ (1 of 3 - 19+ 3-dose series) 08/18/1995 Influenza Vaccine (#1) 2024 4, 02/20/2023, 01/09/2022, Additional history exists Mammogram for age 45-75 03/15/2025 03/15/20 24, 10/29/2022, 10/15/2021 Depression screening for age 12+ 06/24/2025 06/24/2024, 06/18/2024, 06/01/2024, Additional history exists BMI (ht and wt on same day) for age 18+ 10/12/2025 10/12/2024, 07/27/2024, 07/24/2024, Additional history exists Pap test for age 21-65 07/27/2028 , 07/28/2023, 10/11/2017, Additional history exists Tetanus booster 01/18/2029 01/18/2019, 04/05, 1975, Additional history exists Lipids for age 45-75 05/11/2029 05/11/2024, 09/15/2023, 01/10/2023, Additional history exists Colonoscopy through age 75 09/29/203009/29, 09/30/2023, 09/30/2023 RSV vaccine for adults or (1 - 1-dose 75+ series) 08/18/2051 HIV for age 15-65 Completed 07/28/2023 Hepatitis C screening for age 18-79 Completed 07/28/2023 COVID-19 vaccine series Completed 03/29/20 24, 12/28/2022, 01/09/2022, Additional history exists Pneumococcal series for age 6-49 Aged Out No longer eligible based on patient's age to complete this topic Procedures Procedure Name Priority Date/Time Associated Diagnosis Comments RUBEOLA IMMUNE STATUS Routine 12/11/2024 5:00 PM CDT Immunity status testing HEMOGLOBIN A1C Routine 12/11/2024 5:00 PM CDT Screening for diabetes mellitus TSH WITH REFLEX Routine 12/11/2024 5:00 PM CDT Nonspecific abnormal results of thyroid function study SCAN-OPERATIVE/PROC EDURE REPORT 12/07/2024 12:00 AM CDT LIPID PANEL W REFLEX MEASURED LDL Routine 05/11/2024 10:11 AM SALES REPRESENTATIVE Morbid obesity with BMI of 40.0-44.9, adult (HC) XR MAMMO DENIS BILAT SCREEN Routine 03/15/2024 4:52 PM SALES REPRESENTATIVE Visit for screening mammogram COLONOSCOPY SCREENING Routine 09/30/2023 10:45 AM CDT Screening for colon cancer ANTI HIV 1/2 Routine 07/28/2023 4:32 PM CDT Screening for HIV (human immunodeficiency virus) ANTI HCV Routine 07/28/2023 4:32 PM CDT Need for hepatitis C screening test HPV HIGH RISK Routine 07/28/2023 3:57 PM CDT Pap smear for cervical cancer screening from Last 3 Months or Most Recently Relevant to Health Maintenance Results * HEMOGLOBIN A1C (12/11/2024 5:00 PM CDT) HEMOGLOBIN A1C 5.6 <5.7 % 12/12/2024 5:24 AM CDT [facility] Comment: For the purpose of screening for the presence of diabetes: <5.7% Consistent with the absence of diabetes 5.7-6.4% Consistent with increased risk for diabetes (prediabetes) > or =6.5% Consistent with diabetes This assay result is consistent with a decreased risk of diabetes. Currently, no consensus exists regarding use of hemoglobin A1c for diagnosis of diabetes in children. According to [place] Diabetes Association (ADA) guidelines, hemoglobin A1c <7.0% represents optimal control in non- diabetic patients. Different metrics may apply to specific patient populations. Standards of Medical Care in Diabetes(ADA). Blood BLOOD SPECIMEN / Unknown [facility] / Unknown 12/11/2024 5:00 PM CDT 12/11/2024 4:51 PM CDT Jose DUENAS CHEMISTRY Final Resul t Performing Organization Address [facility] de Phone Number [employer] [address] [address], [place] [phone] * TSH WITH REFLEX (12/11/2024 5:00 PM CDT) TSH W/REFLEX TO FT4 1.07 mIU/L 12/12/2024 4:08 AM CDT [facility] Comment: Reference Range > or = 20 Years 0.40-4.50 Ranges First trimester 0.26-2.66 Second trimester 0.55-2.73 Third trimester 0.43-2.91 Blood BLOOD SPECIMEN / Unknown [facility] / Unknown 12/11/2024 5:00 PM CDT 12/11/2024 4:51 PM CDT Jose DUENAS CHEMISTRY Final Resul t Performing Organization Address [facility] Co de Phone Number [employer] [address] [address], [place] [phone] * RUBEOLA IMMUNE STATUS (12/11/2024 5:00 PM CDT) MEASLES AB (IGG), IMMUNE STATUS >300.00 AU/mL 12/12/2024 9:16 AM CDT [facility] Comment: AU/mL Interpretation ----- <13.50 Not consistent with immunity 13.50-16.49 Equivocal >16.49 Consistent with immunity The presence of measles IgG suggests immunization or past or current infection with measles virus. For additional information, please refer to http://[employer].Inotrem/faq/JBG479 (This link is being provided for informational/ educational purposes only.) Blood BLOOD SPECIMEN / Unknown [facility] / Unknown 12/11/2024 5:00 PM CDT 12/11/2024 5:00 PM CDT Jose DUENAS LABORATORY Final Resul t [employer] [address] [address], * SCAN-OPERATIVE/PROCEDURE REPORT (12/07/2024 12:00 AM CDT) Scanner OTHER Final Result * LIPID PANEL W REFLEX MEASURED LDL (05/11/2024 10:11 AM SALES REPRESENTATIVE) CHOLESTEROL, TOTAL 168 <200 mg/dL [facility] HDL CHOLESTEROL 53 > OR = 50 mg/dL [facility] o[facility] guadalupe Garcias TRIGLYCERIDES 90 <150 mg/dL [facility] LDL-CHOLESTEROL 97 mg/dL (calc) [facility] Comment: Reference range: <100 Desirable range <100 mg/dL for primary prevention; <70 mg/dL for patients with CHD or diabetic patients with > or = 2 CHD risk factors. LDL-C is now calculated using the Tana calculation, which is a validated novel method providing better accuracy than the Friedewald equation in the estimation of LDL-C. Robinson MORRISON et al. CARIDAD. 2013;310(19): 8000-8256 (http://education.Inotrem/faq/DTA910) CHOL/HDLC RATIO 3.2 <5.0 (calc) [facility] NON HDL CHOLESTEROL 115 <130 mg/dL (calc) [facility] Comment: For patients with diabetes plus 1 major ASCVD risk factor, treating to a non-HDL-C goal of <100 mg/dL (LDL-C of <70 mg/dL) is considered a therapeutic option. Blood BLOOD SPECIMEN / Unknown 05/11/2024 10:11 AM SALES REPRESENTATIVE 05/11/2024 10:12 AM SALES REPRESENTATIVE Narrative [facility] - 05/12/2024 4:02 AM SALES REPRESENTATIVE FASTING:YES FASTING: YES Ana DUENAS CHEMISTRY Final Re sult [employer] [facility] [address] [place] [address], [facility] [address] [place] [address] * XR MAMMO DENIS BILAT SCREEN (03/15/2024 4:52 PM SALES REPRESENTATIVE) Anatomical Region Laterality Modality BREASTS, Breast Left, Breast Right Bilateral Mammography Impressions 03/16/2024 2:38 PM SALES REPRESENTATIVE There is no radiographic evidence for malignancy. Recommend annual mammograms. MAMMOGRAM ASSESSMENT: ACR 1 Negative PATIENTS: You will also receive a letter with your examination results in an easy to read format. If you have questions about your results, please contact your referring provider. Narrative 03/16/2024 2:38 PM SALES REPRESENTATIVE For Patients: As a result of the Century Cures Act, medical imaging exams and procedure reports are released immediately into your electronic medical record. You may view this report before your referring provider. If you have questions, please contact your health care provider. XR MAMMO DENIS BILAT SCREEN [[id number]] CLINICAL HISTORY: This is an asymptomatic 48 y.o. patient. INDICATION FOR EXAM: Mammogram Screening. TECHNIQUE: CC & MLO views were obtained. This study was evaluated with the assistance of Computer-Aided Detection. Breast Tomosynthesis was used in interpretation. COMPARISON FILM: Yes 10/29/22 [facility] 10/15/21 [facility] FINDINGS: There are scattered areas of fibroglandular density. There are no dominant masses, suspicious micro calcifications or areas of architectural distortion. us Jose Jade PA MAMMO Final Resul t * COLONOSCOPY (09/30/2023 11:28 AM CDT) 09/30/2023 11:2 8 AM CDT Narrative Transcriptions Robinson Reza MD - 09/30/2023 12:36 PM CDT Patient Name: Homa Ridley Procedure Date: 09/30/2023 Gender: Female Date of : 1975 Admit Type: Outpatient Procedure: Colonoscopy Proceduralist: Robinson Reza MD , Chayo Arshad (Nurse), Thais Redmond (Nurse) Referring MD: Rylie Whaley Indications/Pre-Op Diagnosis: Screening for colorectal malignant neoplasm, This is the patient's first colonoscopy Medications: Fentanyl 200 micrograms IV, Midazolam 6 mgIV, The level of sedation administered wasmoderate Procedure Description: The patient had risks, benefits and alternatives explained to andgave informed consent. The patient had a stable cardiopulmonary status and judged an adequate candidate for conscious sedation. The endoscope [id number] was passed through the anus andadvanced to the cecum, identified by appendiceal orifice and ileocecal valve.The colonoscopy was performed without difficulty. The patient toleratedthe procedure well. The quality of the bowel preparation was good. The ileocecal valve, appendiceal orifice, and rectum were photographed. Complications: No immediate complications. Estimated Blood Loss & Specimen: Estimated blood loss: none. Specimen collected - Yes and sent to Laboratory Findings: The perianal and digital rectal examinations were normal. A 4 mm polyp was found in the transverse colon. The polyp was semi-pedunculated. The polyp was removed with a cold snare. Resection and retrieval were complete. The colon (entire examined portion) was moderately redundant. The exam was otherwise without abnormality. Impressions/Post-Op Diagnosis: - One 4 mm polyp in the transverse colon, removed with a cold snare. Resected and retrieved. - Redundant colon. - The examination was otherwise normal. Recommendation: - Patient has a contact number available for emergencies. The signsand symptoms of potential delayed complications were discussed with the patient. Return to normal activities tomorrow. Written discharge instructions were provided to the patient. - Resume previous diet. - Continue present medications. - Await pathology results. - Repeat colonoscopy is recommended. The colonoscopy date will be determined after pathology results from today's exam become available for review. - Patient's sedation for a repeat study will require Anesthesia staff assistance. Moderate Sedation: A time out was performed before the procedure. Moderate (conscious) sedation was administered by the endoscopy nurse and supervised bythe endoscopist. The following parameters were monitored: oxygensaturation, heart rate, blood pressure, EKG, CO2, respiratory rate, adequacy of pulmonary ventilation and reponse to care. Please refer to the patient's medical record flowsheets and nursing notes for moderate sedation details. Total physician intraservice time was 32 minutes. Robinson Reza MD 09/30/2023 12:36:25 PM This report has been signed electronically. Note Initiated On: 09/30/2023 11:28 AM Procedure Code(s): --- Professional --- 87635, Colonoscopy, flexible; with removalof tumor(s), polyp(s), or other lesion(s) bysnare technique Diagnosis Code(s): --- Professional --- Z12.11, Encounter for screening formalignant neoplasm of colon D12.3, Benign neoplasm of transverse colon (hepatic flexure or splenic flexure) Q43.8, Other specified congenitalmalformations of intestine CPT copyright 2022 [place] [employer]. All rights reserved. The codes documented in this report are preliminary and upon certified medical coder reviewmay be revised to meet current compliance requirements. Scope In: 11:58:36 AM Scope Withdrawal Time 0 hours 9 minutes 4 seconds Scope Out: 12:28:25 PM Robinson Reza MD PROCEDURE ORD Final Res ult * ANTI HCV (07/28/2023 4:32 PM CDT) HEPATITIS C ANTIBODY Non-Reacti ve Non-React lona 07/29/2023 2:31 PM CDT [facility] Comment:Please note, per www .CDC.gov: If a patient is known to be at high risk of HCV infection, or is symptomatic, and the physician's suspicion of HCV infection is high, HCV RNA testing is often employed and is of diagnostic value, even after an initial negative anti-HCV test result. Blood BLOOD SPECIMEN / Unknown Venipuncture / Unknown 07/28/2023 4:32 PM CDT 07/28/2023 4:34 PM CDT Rylie Whaley MD SEND OUTS Final Resul t [facility] [address] [place] [address], [place] * ANTI HIV 1/2 [26298.0] (07/28/2023 4:32 PM CDT) HIV-1/HIV-2 SCREEN Non-Reacti ve Non-Reacti ve 07/29/2023 2:19 PM CDT [facility] Comment:HIV-1 p24 and HIV-1/ HIV-2 Ab Not Detected. Blood BLOOD SPECIMEN / Unknown Venipuncture / Unknown 07/28/2023 4:32 PM CDT 07/28/2023 4:34 PM CDT us Rylie Whaley MD SEND OUTS Final Resul t [facility] [address] [place] [address], * HPV HIGH RISK (07/28/2023 3:57 PM CDT) TYPE 16 Negative Negative 08/01/2023 6:09 PM CDT [facility] TYPE 18 Negative Negative 08/01/2023 6:09 PM CDT [facility] OTHER HIGH RISK TYPES Negative Negative 08/01/2023 6:09 PM CDT [facility] Other (Cervical) Non-Blood / Unknown 07/28/2023 3:57 PM CDT 07/29/2023 12:10 PM CDT Narrative [facility] - 08/01/2023 6:09 PM CDT HPV types 16, 18, 31, 33, 35, 39, 45, 51, 52, 56, 58, 59, 66 and 68 DNA were undetectable or below the pre-set threshold. Methodology: Noemi Andrae 4800 HPV Test Rylie Whaley MD MICROBIOLOGY Final Resul t Performing Organization Address [facility] Co de Phone Number [facility] [address] [place] [address], from Last 3 Months or Most Recently Relevant to Health Maintenance Insurance [facility] BLUE [facility] FED EMP OWCP Advance Directives * Full Code (Latest Code Status on File) Date Activated Date Inactivated Comments 05/04/2007 7:17 AM 05/04/2007 11:56 AM Care Teams Foam Molder Relationship Specialty [place] [address] [place] [address] PCP - General Physician Fuel House Attendant 08/09/[address] [place] [address] Catalyst Impregnator 05/08/24 Ana Pacheco PA [address] [facility] [place] [address] Physician Fuel House Attendant 05/03/24
[2024-12-19 00:51] VITALS: BP 170/87; PULSE 62; RESP 20; O2SAT 97
[2024-12-19 01:00] VITALS: PULSE 58; RESP 18; O2SAT 97
[2024-12-19] MEDS: GI COCKTAIL (VISC LIDO/ANTACID) 30 ML PO (01:02)
[2024-12-19 01:03] VITALS: BP 154/84; PULSE 65; RESP 20; O2SAT 98
[2024-12-19] MEDS: FAMOTIDINE 10 MG/ML inj 20 MG IVP (01:06)
[2024-12-19 01:22] LABS: Troponin, Point-of-Care* 0.01 ng/ml (0.01-0.04)
[2024-12-19 01:27] LABS: Chloride* 104 mmol/L (96-114); Sodium* 137 mmol/L (135-149)
[2024-12-19 01:28] LABS: Potassium* 4.2 mmol/L (3.6-5.1)
[2024-12-19 01:30] VITALS: PULSE 64; O2SAT 95
[2024-12-19 01:30] LABS: Anion Gap 4 mEq/L (7-15); Blood Urea Nitrogen* 28 mg/dL (5-24); Carbon Dioxide* 29 mmol/L (20-32); Creatinine* 0.8 mg/dL (0.5-1.5); Est. Creatinine Clearance* 80.51; Estimated Glomerular Filt Rate 91 ml/min
[2024-12-19 01:31] LABS: Calcium* 9.3 mg/dL (8.4-10.6); Glucose* 110 mg/dL (60-115)
[2024-12-19 01:32] VITALS: BP 135/74; PULSE 58; RESP 16; O2SAT 96
== END 2024-12-19 02:16 | disposition home or self-care (01) ==
PROVIDERS: Emergency Provider Family Medicine
DX: R07.89 Other chest pain (principal); I10 Essential (primary) hypertension
CPT/HCPCS: 36415; 80048; 83735; 84484; 96374; 99284; A9270; J1308